=== PATIENT | female | born 1960 | race Caucasian/White ===

== ENCOUNTER → 2018-09-21 12:27 | Outpatient (CLI) | payer OTHER, SELFPAY ==
--- NOTE | 2018-09-21 | DI.MG.S_ITS ---
BILATERAL DIGITAL SCREENING MAMMOGRAM 3D/2D WITH CAD: 09/21/2018 CLINICAL: Routine screening. Baseline exam. No prior exams were available for comparison. The tissue of both breasts is heterogeneously dense. This may lower the sensitivity of mammography. Current study was also evaluated with a Computer Aided Detection (CAD) system. There is a focal asymmetry in the right breast upper outer aspect anterior depth. There is a focal asymmetry in the left breast upper outer aspect posterior depth. No other significant masses or calcifications are seen in either breast. IMPRESSION: INCOMPLETE: NEEDS ADDITIONAL IMAGING EVALUATION The focal asymmetry in the right breast upper outer aspect anterior depth is indeterminate. Additional views with possible ultrasound are recommended. The focal asymmetry in the left breast upper outer aspect posterior depth is indeterminate. Additional views with possible ultrasound are recommended. This exam was interpreted at Station ID: [id number]. NOTE: For mammograms, a report in lay terms will be sent to the patient. Approximately 15% of breast malignancies will not be visualized mammographically. In the management of a palpable breast mass, a negative mammogram must not discourage biopsy of a clinically suspicious lesion. Electronically Signed By: Alexi Cunha M.D. ecl/:09/21/2018 19:05:28 letter sent: Additional Imaging Needed ACR BI-RADS Category 0: Incomplete 3340F
== END ==
PROVIDERS: PCP Registered Nurse; Visit Provider Registered Nurse
DX: Z12.31 Encounter for screening mammogram for malignant neoplasm of breast (principal)
CPT/HCPCS: 77063; 77067

== ENCOUNTER → 2018-10-11 13:01 | Outpatient (CLI) | payer OTHER, SELFPAY ==
--- NOTE | 2018-10-11 | DI.US.S_ITS ---
LIMITED ULTRASOUND OF LEFT BREAST: 10/11/2018 CLINICAL: Patient returns today to evaluate a focal asymmetry in the left breast. Comparison is made to exams dated: 10/11/2018 mammogram and 09/21/2018 mammogram - [facility]. Real-time and Doppler ultrasound of the left breast upper outer quadrant were performed. Patrick scale images of the real-time examination were reviewed. There is a 2.2 x 1.6 x 0.6 cm irregular indistinct hypoechoic mass in the left breast at 1:30 position 12 cm from the nipple which demonstrates posterior acoustic shadowing and peripheral vascularity on Doppler ultrasound. This correlates with mammography. Targeted ultrasound of the left axilla demonstrates a hypervascular 2.9 x 0.5 cm left axillary lymph node, which demonstrates cortical thickness measuring at the upper limits of normal in thickness. IMPRESSION: SUSPICIOUS OF MALIGNANCY 1. 2.2 cm irregular indistinct mass in the left breast at 1:30 position 12 cm from the nipple is at moderate suspicion for malignancy. An ultrasound-guided biopsy is recommended. 2. Indeterminate left axillary lymph node demonstrating hypervascularity and cortical thickness at the upper limits of normal in size. An ultrasound-guided biopsy is recommended. These results and recommendations were discussed with the patient at the time of the exam by the [facility] Radiologist Dr. Micah Diana in person. This exam was interpreted at Station ID: [id number]. Electronically Signed By: Alexi Cunha M.D. ecl/:10/11/2018 17:40:58 letter sent: Biopsy Required Ultrasound BI-RADS: 4b Suspicious abnormality - intermediate suspicion of malignancy
--- NOTE | 2018-10-11 | DI.US.S_ITS ---
LIMITED ULTRASOUND OF RIGHT BREAST: 10/11/2018 CLINICAL: Patient returns today to evaluate a focal asymmetry in the right breast. Comparison is made to exams dated: 10/11/2018 mammogram and 09/21/2018 mammogram - [facility]. Real-time and Doppler ultrasound of the right breast upper outer quadrant were performed. Patrick scale images of the real-time examination were reviewed. There is a 1.1 x 0.5 x 0.9 cm oval circumscribed hypoechoic probable cluster of microcysts with internal echogenic foci and septations, located in the right breast at 11:00 position 3 cm from the nipple and demonstrating no vascularity on Doppler ultrasound. A similar smaller 0.4 cm probable cluster of microcysts is noted adjacent to this primary cluster. These may correlate with the finding seen on mammography. IMPRESSION: PROBABLY BENIGN 1.1 cm probable cluster of microcysts in the right breast at 11:00 position 3 cm from nipple is probably benign. A followup diagnostic mammogram and targeted ultrasound in 6 months is recommended to demonstrate stability. These results and recommendations were discussed with the patient at the time of the exam by the [facility] Radiologist Dr. Micah Diana in person. The patient is advised to monitor her breasts and to return sooner for re-evaluation should she feel anything grow or change. This exam was interpreted at Station ID: [id number]. Electronically Signed By: Alexi Cunha M.D. ecl/:10/11/2018 17:45:00 letter sent: Followup Recommended Ultrasound BI-RADS: 3 Probably benign
--- NOTE | 2018-10-11 | DI.MG.S_ITS ---
BILATERAL DIGITAL DIAGNOSTIC MAMMOGRAM 3D/2D: 10/11/2018 CLINICAL: Additional evaluation requested from prior study. Comparison is made to exam dated: 09/21/2018 [facility]. The tissue of both breasts is heterogeneously dense. This may lower the sensitivity of mammography. Previously identified focal asymmetry in the right breast upper outer aspect anterior depth on comparison screening mammograms persists with additional views. Previously identified focal asymmetry in the left breast upper outer aspect posterior depth on comparison screening mammograms persists with additional views. IMPRESSION: INCOMPLETE: NEEDS ADDITIONAL IMAGING EVALUATION Previously identified focal asymmetry in the right breast upper outer aspect anterior depth on comparison screening mammograms persists with additional views. A targeted ultrasound is recommended for further evaluation, and will be performed immediately following this exam. Previously identified focal asymmetry in the left breast upper outer aspect posterior depth on comparison screening mammograms persists with additional views. A targeted ultrasound is recommended for further evaluation, and will be performed immediately following this exam. This exam was interpreted at Station ID: [id number]. NOTE: For mammograms, a report in lay terms will be sent to the patient. Approximately 15% of breast malignancies will not be visualized mammographically. In the management of a palpable breast mass, a negative mammogram must not discourage biopsy of a clinically suspicious lesion. Electronically Signed By: Alexi Cunha M.D. ecl/:10/11/2018 17:31:18 letter sent: Additional Imaging Needed ACR BI-RADS Category 0: Incomplete 3340F
== END ==
PROVIDERS: PCP Registered Nurse; Visit Provider Registered Nurse
DX: R92.8 Other abnormal and inconclusive findings on diagnostic imaging of breast (principal); N63.21 Unspecified lump in the left breast, upper outer quadrant; N64.89 Other specified disorders of breast
CPT/HCPCS: 76642; 77066; G0279

== ENCOUNTER → 2018-11-16 08:40 | Outpatient (CLI) | payer OTHER, SELFPAY ==
--- NOTE | 2018-11-16 | PATH_ITS ---
[facility] Accession Number: [id number] . 01 Material submitted: . LEFT BREAST . 01 Clinical history: . MASS 1:30 12 CMFN . 01 Diagnosis: Left Breast, Mass at 1:30, 12 cm from Nipple, Biopsy: Breast tissue with stromal fibrosis and rare microcalcifications. Background of fibrocystic change including microcysts, focal apocrine metaplasia, columnar cell change, and usual ductal hyperplasia. Negative for atypia, carcinoma in situ and invasive malignancy. V/11/17/2018 . 01 Electronically signed: . Katy Zelaya MD, Pathologist NPI- [id number] . 01 Gross description: . Received one formalin-filled container labeled with the patient's name and designated left breast mass 1:30, 12 cm FN. The specimen is received with plastic filter in container, sample loose in container. The specimen consists of multiple light yellow-márquez to márquez-xavier portions of tissue, which aggregate to 1.5 x 0.6 x 0.3 cm. The specimen is filtered and entirely submitted in one cassette. Collection date 11/16/2018. Collection time per container 9:55. Total fixation time 12 hours up to 24. ([facility]:[id number] [id number]) /[facility] . 01 Microscopic: . Deeper levels examined. . 01 Pathologist provided ICD-10: N60.92 . 01 CPT . 154662 Performed at: 01 [facility] [address] [place] [address], [place], [place] [id number] MD Yosef Greer MD Phone: [phone]
--- NOTE | 2018-11-16 | DI.MG.S_ITS ---
UNILATERAL LEFT DIGITAL DIAGNOSTIC MAMMOGRAM POST-NEEDLE BIOPSY: 11/16/2018 CLINICAL: Left breast mass. Comparison is made to exams dated: 10/11/2018 mammogram and 09/21/2018 mammogram - [facility]. The tissue of left breast is heterogeneously dense. This may lower the sensitivity of mammography. There is a marker clip in the appropriate position in the left breast at 1 o'clock posterior depth. This marker clip placement is at the biopsy site. IMPRESSION: POST PROCEDURE MAMMOGRAM FOR MARKER PLACEMENT There was a successful marker clip placement in the left breast posterior depth. This exam was interpreted at Station ID: [id number]. NOTE: For mammograms, a report in lay terms will be sent to the patient. Approximately 15% of breast malignancies will not be visualized mammographically. In the management of a palpable breast mass, a negative mammogram must not discourage biopsy of a clinically suspicious lesion. Electronically Signed By: Benja lizarraga/:11/16/2018 12:54:44 ACR BI-RADS Category Post-procedure mammogram for marker placement
--- NOTE | 2018-11-16 | DI.US.S_ITS ---
ULTRASOUND GUIDED BIOPSY LEFT BREAST USING VACUUM DEVICE WITH MARKING DEVICE INSERTED AND POST DIGITAL MAMMOGRAPHIC IMAGIN11/16/2018 CLINICAL: Left breast mass. PATIENT CONSENT: Risks (minor bleeding, infection, vasovagal reaction and repeat procedure), benefits and alternatives were explained to the patient and written informed consent was obtained. Correlation is made to exams dated: 10/11/2018 ultrasound, 10/11/2018 mammogram, and 09/21/2018 mammogram - [facility]. An ultrasound guided biopsy using real-time ultrasound was performed for the indistinct irregular shaped mass located in the left breast at 1:30 position 1 cm from the nipple. The skin was prepped in the usual manner. Local anesthetic was administered to the access site. A skin janette was made in the breast. A biopsy needle was placed adjacent to the abnormality under ultrasound guidance. Once the needle was documented to be in the correct location, five specimens were obtained using the [employer] system. A clip was inserted into the biopsy cavity. A skin adhesive was applied to the access site. Post procedure digital mammographic imaging demonstrates the location device at the targeted area. The specimens were sent to the laboratory for pathological analysis. IMPRESSION: ULTRASOUND GUIDED BIOPSY BENIGN Ultrasound guided biopsy of the mass in the left breast at 1:30 position 1 cm from the nipple was successful with no apparent post procedure complications. Final pathology results per pathologist Dr. Katy Zelaya identified breast tissue with stromal fibrosis and rare microcalcifications. Background of fibrocystic change including microcysts, focal apocrine metaplasia, columnar cell change, and usual ductal hyperplasia. Negative for atypia, carcinoma in situ, and invasive malignancy. Findings are discordant with imaging results. A repeat ultrasound guided biopsy is recommended. These results will be communicated to the patient's referring provider. This exam was interpreted at Station ID: [id number]. Benja lizarraga,ecl/:11/24/2018 11:37:26
== END ==
PROVIDERS: Visit Provider Student in an Organized Health Care Education/Training Program
DX: N60.32 Fibrosclerosis of left breast (principal); R92.0 Mammographic microcalcification found on diagnostic imaging of breast; N60.82 Other benign mammary dysplasias of left breast; N60.92 Unspecified benign mammary dysplasia of left breast
CPT/HCPCS: 19083; 77065

== ENCOUNTER → 2018-12-18 13:44 | Outpatient (CLI) | payer OTHER, SELFPAY ==
--- NOTE | 2018-12-18 | PATH_ITS ---
[facility] Accession Number: [id number] . 01 Material submitted: . LEFT BREAST . 01 Clinical history: . MASS 1:30 12CM FN . 02 Diagnosis: Left Breast Mass, 1:30 o'clock, 12 cm from Nipple, Needle Core Biopsies: Dense fibrous breast parenchyma with fibrocystic changes. Small fragment of adipose tissue with fat necrosis. Focal microcalcifications associated with benign breast parenchyma. Negative for atypical hyperplasia, in situ or invasive carcinoma. Numerous deeper levels examined. MRV/12/20/2018 . 02 Comment: As part of routine manufacturing quality engineer, Dr. Steen has reviewed this case and agrees with the above diagnosis. . 02 Electronically signed: . Uri Padron MD, PhD, Pathologist NPI- [id number] . 01 Gross description: . Received one formalin-filled container labeled with the patient's name and designated left breast mass, 1:30, 12 cm, FN. The specimen is received with plastic filter in container, sample loose in container. The specimen consists of multiple portions of yellow-márquez soft tissue, which aggregate to 1.5 x 0.6 x 0.2 cm. The specimen is filtered, wrapped and entirely submitted in one cassette. Collection date 12/18/2018. Collection time per container 2:36. Total fixation time 12 hours up to 24. ([facility]:cmc80 [id number]) /[facility] . 02 Pathologist provided ICD-10: N60.12, N63.20 . 02 CPT . 213678 Performed at: [address] [facility], [place], [place] [id number] MD Yosef Greer MD Phone: [phone] Performed at: 02 [facility] [address] [place] [id number] MD Cara Steen MD Phone: [phone]
--- NOTE | 2018-12-18 | DI.US.S_ITS ---
ULTRASOUND GUIDED BIOPSY LEFT BREAST USING VACUUM DEVICE WITH MARKING DEVICE INSERTED: 12/18/2018 CLINICAL: Repeat left breast biopsy of 1:30 12cmfn mass. PATIENT CONSENT: Risks (minor bleeding, infection, vasovagal reaction and repeat procedure), benefits and alternatives were explained to the patient and written informed consent was obtained. Correlation is made to exams dated: 11/16/2018 ultrasound biopsy, 11/16/2018 mammogram, 10/11/2018 ultrasound, 10/11/2018 mammogram, and 09/21/2018 mammogram - [facility]. An ultrasound guided biopsy using real-time ultrasound was performed for the irregular shaped mass located in the left breast at 1 o'clock posterior depth. The skin was prepped in the usual manner. Local anesthetic was administered to the access site. A small incision was made in the breast. The abnormality was approached from the lateral aspect. A biopsy needle was placed adjacent to the abnormality under ultrasound guidance. Once the needle was documented to be in the correct location, eight specimens were obtained using the Mammotome biopsy system. A clip was inserted into the biopsy cavity. The specimens were sent to the laboratory for pathological analysis. IMPRESSION: ULTRASOUND GUIDED BIOPSY BENIGN Ultrasound guided biopsy of the mass in the left breast at 1 o'clock posterior depth was successful. Pathology demonstrated dense fibrous breast tissue with fibrocystic changes. Fat necrosis. Focal microcalcifications. Negative for atypical hyperplasia, in situ or invasive carcinoma. The imaging and pathology findings are concordant. Recommend follow up right breast mammogram and ultrasound to evaluate for stability of probably benign findings in the right breast. See prior report dated 10/11/2018 This exam was interpreted at Station ID: [id number]. Cachorro solorzano,aty/:12/25/2018 18:00:22
--- NOTE | 2018-12-18 | DI.MG.S_ITS ---
UNILATERAL LEFT DIGITAL DIAGNOSTIC MAMMOGRAM POST-NEEDLE BIOPSY: 12/18/2018 CLINICAL: Post clip placement. Left breast mass. Comparison is made to exams dated: 11/16/2018 mammogram, 10/11/2018 mammogram, and 09/21/2018 mammogram - [facility]. The tissue of left breast is heterogeneously dense. This may lower the sensitivity of mammography. There is a marker clip in the appropriate position in the left breast at 1 o'clock middle depth. This marker clip placement is at the biopsy site. IMPRESSION: POST PROCEDURE MAMMOGRAM FOR MARKER PLACEMENT There was a successful marker clip placement in the left breast middle depth. This exam was interpreted at Station ID: [id number]. NOTE: For mammograms, a report in lay terms will be sent to the patient. Approximately 15% of breast malignancies will not be visualized mammographically. In the management of a palpable breast mass, a negative mammogram must not discourage biopsy of a clinically suspicious lesion. Electronically Signed By: Cachorro solorzano/:12/18/2018 16:49:23 ACR BI-RADS Category Post-procedure mammogram for marker placement
== END ==
PROVIDERS: PCP Student in an Organized Health Care Education/Training Program; Visit Provider Student in an Organized Health Care Education/Training Program
DX: N60.12 Diffuse cystic mastopathy of left breast (principal); N64.1 Fat necrosis of breast
CPT/HCPCS: 19083; 77065

== ENCOUNTER → 2019-07-04 13:39 | Outpatient (CLI) | payer OTHER, SELFPAY ==
--- NOTE | 2019-07-04 14:00 | DI.MG.S_ITS ---
Patient Name: JAROCHO RAJAN date: 1960 Sex: F Attending Physician: Devyn Indications: Date: 07/04/2019 14:42 At the request of: ZHANG TAMEZ Procedure: MM diagnostic mammo BI BILATERAL DIGITAL DIAGNOSTIC MAMMOGRAM 3D/2D: 07/04/2019 CLINICAL: 6 MONTH FOLLOW UP RIGHT BREAST. Comparison is made to exams dated: 12/18/2018 mammogram, 11/16/2018 mammogram, 10/11/2018 mammogram, 12/18/2018 ultrasound biopsy, and 11/16/2018 ultrasound biopsy - [facility]. The tissue of both breasts is heterogeneously dense. This may lower the sensitivity of mammography. Biopsy clips are identified in the upper outer left breast at posterior depth. The previously biopsied mass (biopsy-proven benign on 12/18/18) remains stable in size. Previously identified subcentimeter focal asymmetry in the right breast upper outer aspect anterior depth on comparison screening mammograms remains stable. No new suspicious masses, calcifications, or other findings are seen in either breast. IMPRESSION: INCOMPLETE: NEEDS ADDITIONAL IMAGING EVALUATION Previously identified subcentimeter focal asymmetry in the right breast upper outer aspect anterior depth on comparison screening mammograms remains stable. A targeted ultrasound is recommended for further evaluation. This exam was interpreted at Station ID: [id number]. NOTE: For mammograms, a report in lay terms will be sent to the patient. Approximately 15% of breast malignancies will not be visualized mammographically. In the management of a palpable breast mass, a negative mammogram must not discourage biopsy of a clinically suspicious lesion. Electronically Signed By: Alexi Cunha M.D. ecl/:07/04/2019 15:36:38 Continued Report - Page 2 of 2 Patient Name: JAROCHO RAJAN date: 1960 Sex: F Attending Physician: Devyn Indications: Date: 07/04/2019 14:42 At the request of: ZHANG TAMEZ Procedure: MM diagnostic mammo BI ACR BI-RADS Category 0: Incomplete 3340F
--- NOTE | 2019-07-04 14:30 | DI.US.S_ITS ---
Patient Name: JAROCHO RAJAN date: 1960 Sex: F Attending Physician: Devyn Indications: Date: 07/04/2019 15:45 At the request of: ZHANG TAMEZ Procedure: US breast RT limited LIMITED ULTRASOUND OF RIGHT BREAST: 07/04/2019 CLINICAL: 6 month follow-up. Comparison is made to exams dated: 07/04/2019 mammogram, 10/11/2018 ultrasound, 10/11/2018 mammogram, and 09/21/2018 mammogram - [facility]. Color flow and real-time ultrasound of the right breast 11 o'clock region were performed. Patrick scale images of the real-time examination were reviewed. There is a 1.1 x 0.5 x 0.9 cm (previously 1.1 x 0.5 x 0.9 cm on 10/11/2018) oval circumscribed hypoechoic probable cluster of microcysts with internal echogenic foci and septations, located in the right breast at 11:00 position 3 cm from the nipple and demonstrating no vascularity on Doppler ultrasound. Previously identified similar smaller 0.4 cm probable cluster of microcysts previously noted adjacent to this primary cluster is not well seen on today's exam. These may correlate with the finding seen on mammography. IMPRESSION: PROBABLY BENIGN 1.1 cm probable cluster of microcysts in the right breast at 11:00 position 3 cm from nipple is probably benign. A followup diagnostic mammogram and targeted ultrasound in 6 months is recommended to demonstrate stability. The patient is advised to monitor her breasts and to return sooner for re- evaluation should she feel anything grow or change. This exam was interpreted at Station ID: [id number]. Electronically Signed By: Alexi Cunha M.D. ecl/:07/04/2019 16:18:25 letter sent: Followup Recommended Ultrasound BI-RADS: 3 Probably benign
== END ==
PROVIDERS: PCP Student in an Organized Health Care Education/Training Program; Visit Provider Student in an Organized Health Care Education/Training Program
DX: R92.8 Other abnormal and inconclusive findings on diagnostic imaging of breast (principal); N64.89 Other specified disorders of breast
CPT/HCPCS: 76642; 77066; G0279

== ENCOUNTER → 2020-04-07 13:06 | Outpatient (CLI) | payer OTHER, SELFPAY ==
--- NOTE | 2020-04-07 | DI.US.S_ITS ---
LIMITED ULTRASOUND OF RIGHT BREAST: 04/07/2020 CLINICAL: 6 month F/U. Comparison is made to exams dated: 04/07/2020 mammogram, 07/04/2019 ultrasound, 07/04/2019 mammogram, 10/11/2018 ultrasound, 10/11/2018 mammogram, and 09/21/2018 mammogram - [facility]. Color flow and real-time ultrasound of the right breast 11 o'clock region were performed on the areas of interest. There is a 1.1 cm x 0.5 cm x 0.9 cm oval cyst in the right breast at 11 o'clock middle depth. This oval cyst is hypoechoic with a well-defined boundary, internal echoes, and posterior acoustic enhancement. This abnormality is not significantly changed and correlates with mammography findings. Color flow imaging demonstrates that there is no vascularity present. IMPRESSION: PROBABLY BENIGN The 1.1 cm x 0.5 cm x 0.9 cm oval cyst in the right breast is consistent with a complicated cyst and is probably benign. Follow-up mammogram and ultrasound in 6 months are recommended to demonstrate 2 year stability. A follow-up mammogram and an ultrasound in 6 months are recommended to demonstrate stability. Patient will also be due for screening mammogram of the contralateral breast at that time. This exam was interpreted at Station ID: [id number]. Electronically Signed By: Yosef zavala/:04/07/2020 14:43:41 letter sent: Followup Recommended Ultrasound BI-RADS: 3 Probably benign
--- NOTE | 2020-04-07 | DI.MG.S_ITS ---
UNILATERAL RIGHT DIGITAL DIAGNOSTIC MAMMOGRAM 3D/2D SHORT-TERM FOLLOW-UP: 04/07/2020 CLINICAL: Patient returns for a 6 month follow up of the right breast. Comparison is made to exams dated: 09/21/2018 mammogram, 10/11/2018 mammogram, and 07/04/2019 mammogram - [facility]. The tissue of right breast is heterogeneously dense. This may lower the sensitivity of mammography. There is an oval equal density focal asymmetry with an indistinct and circumscribed margin in the right breast at 11 o'clock anterior depth. This is not significantly changed. No other significant masses or calcifications are seen in the breast. IMPRESSION: INCOMPLETE: NEEDS ADDITIONAL IMAGING EVALUATION The oval equal density focal asymmetry in the right breast is indeterminate. An ultrasound is recommended. This exam was interpreted at Station ID: [id number]. NOTE: For mammograms, a report in lay terms will be sent to the patient. Approximately 15% of breast malignancies will not be visualized mammographically. In the management of a palpable breast mass, a negative mammogram must not discourage biopsy of a clinically suspicious lesion. Electronically Signed By: Yosef zavala/ahsan:04/07/2020 13:56:38 ACR BI-RADS Category 0: Incomplete 3340F
== END ==
PROVIDERS: PCP Student in an Organized Health Care Education/Training Program; Referring Provider Student in an Organized Health Care Education/Training Program; Visit Provider Student in an Organized Health Care Education/Training Program
DX: R92.8 Other abnormal and inconclusive findings on diagnostic imaging of breast (principal); N60.01 Solitary cyst of right breast
CPT/HCPCS: 76642; 77065; G0279

== ENCOUNTER → 2023-10-13 13:31 | Outpatient (CLI) | payer MEDICARE, SELFPAY ==
--- NOTE | 2023-10-13 13:32 | DI.CT.S_ITS ---
PROCEDURE: CT SINUS SCREEN WO CON INDICATIONS: Sinus pain, rhinitis, plz eval TECHNIQUE: Noncontrast 3.0 mm axial images acquired from the frontal sinuses to the mid-sella, with coronal and sagittal reformats. For radiation dose reduction, the following was used: automated exposure control, adjustment of mA and/or kV according to patient size. COMPARISON: None. FINDINGS: Image quality: Excellent. Maxillary Sinuses: There is moderate to prominent left-sided and [id number] right-sided mucosal thickening seen. There is demineralization of the superior medial [place] of the maxillary sinuses. Ethmoid Air Cells: There is complete opacification of the right ethmoid air cells and moderate to severe opacification of the left ethmoid air cells. There is demineralization of the ethmoid air cell septations. Sphenoid Sinuses: There is complete opacification of the right sphenoid sinus and moderate mucosal thickening of the left sphenoid sinus. There is demineralization of the [place] of sphenoid sinuses. Frontal Sinuses: There is complete opacification of the right frontal sinus and moderate mucosal thickening seen involving the inferior medial left frontal sinus. No definite bony changes are seen. Ostiomeatal Complexes: The ostiomeatal complexes are completely opacified and demineralized. Opacified bilateral Treasure cells are present, more clearly demonstrated on the right-side. Miscellaneous: Visualized intra-orbital contents are normal. 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 The middle turbinates are demineralized. There is [id number] S shaped nasal septal deviation. Abnormal soft tissue can be seen involving the superior nasal cavity. IMPRESSION: Abnormal soft tissue can be seen involving the superior nasal cavity. Please correlate with polyp disease. Extensive paranasal sinus disease can be seen, which is overall more prominent on the right side than on the left. The ostiomeatal complexes are completely opacified. Areas of bony demineralization are seen, which are consistent with chronic sinusitis. 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 Dictated by: Michael Reed M.D. on 10/13/2023 at 15:47 Approved by: Michael Reed M.D. on 10/13/2023 at 15:50
== END ==
LOC: CT 13:31
PROVIDERS: PCP Student in an Organized Health Care Education/Training Program; Referring Provider Internal Medicine Critical Care Medicine; Visit Provider Internal Medicine Critical Care Medicine
DX: J32.4 Chronic pansinusitis (principal); R51.9 Headache, unspecified; J34.3 Hypertrophy of nasal turbinates; M79.89 Other specified soft tissue disorders
CPT/HCPCS: 70486

== ENCOUNTER → 2024-02-13 10:06 | Outpatient (CLI) | payer MEDICARE, SELFPAY ==
--- NOTE | 2024-02-13 10:08 | DI.RAD.S_ITS ---
PROCEDURE: XR DEXA AXIAL SKELETON INDICATIONS: Asymptomatic menopausal state COMPARISON: None. FINDINGS: Lumbar Spine: Bone mineral density is 0.741 g/cm2, T score -2.8, osteoporosis. Left Hip: Bone mineral density 0.727 g/cm2, T score -1.8, osteopenia. Left Femoral Neck: Bone mineral density 0.672 g/cm2, T score -1.6, osteopenia. Right Hip: Bone mineral density is 0.682 g/cm2, T score -2.1, osteopenia. Right Femoral Neck: Bone mineral density 0.561 g/cm2, T score -2.6, osteoporosis. Fracture Risk Calculation (when applicable): Cannot be calculated due to osteoporosis diagnosis. (T score greater or equal to -1.0 to: NORMAL) (T score from -1.1 to -2.4: OSTEOPENIA) (T score less than or equal to -2.5: OSTEOPOROSIS) IMPRESSION: Osteoporosis. Follow-up guidelines as follows: Osteoporosis: Consider a repeat DEXA and Vertebral Fracture Assessment (VFA) exam in 2 years or sooner if medically necessary, to reassess this patient's status. Osteopenia: Consider a repeat DEXA in 2-3 years to reassess this patient's status, or if there is a new clinical indication. Normal: Consider a repeat DEXA in 5 years or sooner, or if there is a new clinical indication. Dictated by: Jonatan Aquino M.D. on 02/13/2024 at 12:05 Approved by: Jonatan Aquino M.D. on 02/13/2024 at 12:06
== END ==
PROVIDERS: PCP Student in an Organized Health Care Education/Training Program; Referring Provider Student in an Organized Health Care Education/Training Program; Visit Provider Student in an Organized Health Care Education/Training Program
DX: Z78.0 Asymptomatic menopausal state (principal); Z13.820 Encounter for screening for osteoporosis; M81.0 Age-related osteoporosis without current pathological fracture
CPT/HCPCS: 77080